=== PATIENT | female | born 1970 | race Caucasian/White ===

== ENCOUNTER 2018-04-10 19:06 | Inpatient (IN) | payer MEDICARE, MEDICAID, SELFPAY ==
[2018-04-10 19:12] VITALS: BP 141/90; PULSE 96; RESP 18; TEMP 37.6; O2SAT 100
--- NOTE | 2018-04-10 19:53 | ED_ITS ---
HPI - Skin/Abscess/Foreign Bdy <Blossom Thomas PA-C - Last Filed: 04/10/18 22:08> General Chief complaint: Skin/Abscess/Foreign Body Stated complaint: SWOLLEN LEFT HAND Time Seen by Provider: 04/10/18 19:52 Source: patient and family Mode of arrival: ambulatory Limitations: no limitations History of Present Illness HPI narrative: This 48-year-old female right-handed female comes in due to worsening swelling in her left hand. She states that she was scratched in the hand by her pet rabbit 5 days ago. The rabbit is not ill and is kept at her home. She states that this has become more painful today and also has been swollen over the last few days. She states that she can't move her fingers normally due to the pain and swelling. She states that the pain is worse today , and swelling seems to be worsening as well. Pain is also more localized in the hand today, previously it seem to be radiating up into forearm almost to the elbow. She states she has been applying Epsom salt and ice packs and using ibuprofen. She has not had fever. She denies any other wounds or injury. She denies any ongoing medical problems such as cardiac issues or DM, no routine medications. Last oral intake was dinner at 5:30 a.m. A close friend who helps in caregiving reveals privately that patient does have a history of developmental delay Related Data Allergies Allergy/AdvReac Type Severity Reaction Status Date / Time INGREDIENT: NKDA - NO KNOWN Allergy Unknown Uncoded 12/04/17 12:19 DRUG ALLERGIES Review of Systems <Blossom Thomas PA-C - Last Filed: 04/10/18 22:08> Review of Systems All systems reviewed & are unremarkable except as noted in HPI and below Exam <Blossom Thomas PA-C - Last Filed: 04/10/18 22:08> Narrative Exam Narrative: GENERAL APPEARANCE: Patient sitting comfortably, in no distress. LUNGS: Clear to auscultation bilaterally. HEART: Rate and rhythm regular without murmur, normal S1 and S2, no S3 or S4. DERMATOLOGIC: There is erythema on the left hand distal dorsum extending to the 2nd, 3rd, and 4th PIP joints, similar pattern on the palmar surface. On the palmar surface of the ring finger there are skin cracks at the metacarpal joint border, no other breaks visible, no clear puncture wound. Exquisitely tender throughout. MS: She has full AROM L. wrist. She is unable to flex the L. ring finger, has some flexion of the other fingers but limited due to effusion. NEUROVASCULAR: L. radial and ulnar pulses are intact, finger tips are warm and pink, sensation is grossly intact Initial Vital Signs Initial Vital Signs: Vital Signs Temperature 99.7 F H 04/10/18 19:12 Pulse Rate 96 H 04/10/18 19:12 Respiratory Rate 18 04/10/18 19:12 Blood Pressure 141/90 H 04/10/18 19:12 Pulse Oximetry 100 04/10/18 19:12 <Garrison Mohr DO - Last Filed: 04/10/18 23:09> Initial Vital Signs Initial Vital Signs: Vital Signs Temperature 99.7 F H 04/10/18 19:12 Pulse Rate 96 H 04/10/18 19:12 Respiratory Rate 18 04/10/18 19:12 Blood Pressure 141/90 H 04/10/18 19:12 Pulse Oximetry 100 04/10/18 19:12 Course <Blossom Thomas PA-C - Last Filed: 04/10/18 22:08> Additional Information: Drs. Mohr and Linwood have evaluated patient and both agree that admission/ortho consultation is needed due to concern for abscess or evolving flexor tendon synovitis. Dr. Linder international editorial producer for orthopedics is contacted and she will evaluate. X-ray ordered, reviewed pending lab work. Patient was transferred to floor while awaiting orthopedics consultation as Dr. Linder advised she would not be able to take patient to OR until late tonight or early a.m. due to her eating dinner prior to arrival in the ED. Orders Ordered: ED Orders 04/10/18 19:50 Basic Metabolic Panel Stat C-Reactive Protein Quant Stat Complete Blood Count AUTO DIFF Stat ESR [Erythrocyte Sedimentation Rate] Stat Lactate (Lactic Acid) Stat Procalcitonin Stat 04/10/18 20:33 XR hand LT min 3V Stat 04/10/18 20:36 Blood Culture Stat Discontinued Medications Sodium Chloride (Normal Saline 0.9%) 1,000 mls @ 1,000 mls/hr IV BOLUS ONE Stop: 04/10/18 21:10 Last Infusion: 04/10/18 21:32 Dose: 1,000 mls/hr Admin: 04/10/18 20:29 Dose: 1,000 mls/hr Ampicillin Sodium/Sulbactam (Sodium 3 gm/ Sodium Chloride) 100 mls @ 100 mls/ hr IV NOW ONE Stop: 04/10/18 20:12 Last Infusion: 04/10/18 21:31 Dose: 0 mls/hr Admin: 04/10/18 20:30 Dose: 100 mls/hr Ketorolac Tromethamine (Toradol) 30 mg IV NOW ONE Stop: 04/10/18 20:12 Last Admin: 04/10/18 20:29 Dose: 30 mg Vital Signs - 8 hr 04/10/18 19:12 04/10/18 21:04 04/10/18 21:40 Temperature 99.7 F H 99.4 F Pulse Rate 96 H 89 87 Respiratory Rate 18 17 16 Blood Pressure 141/90 H 137/77 H Blood Pressure [Right Arm] 135/69 H Pulse Oximetry 100 99 <Garrison Mohr DO - Last Filed: 04/10/18 23:09> Orders Ordered: ED Orders 04/10/18 19:50 Basic Metabolic Panel Stat C-Reactive Protein Quant Stat Complete Blood Count AUTO DIFF Stat ESR [Erythrocyte Sedimentation Rate] Stat Lactate (Lactic Acid) Stat Procalcitonin Stat 04/10/18 20:33 XR hand LT min 3V Stat 04/10/18 20:36 Blood Culture Stat Discontinued Medications Sodium Chloride (Normal Saline 0.9%) 1,000 mls @ 1,000 mls/hr IV BOLUS ONE Stop: 04/10/18 21:10 Last Infusion: 04/10/18 21:32 Dose: 1,000 mls/hr Admin: 04/10/18 20:29 Dose: 1,000 mls/hr Ampicillin Sodium/Sulbactam (Sodium 3 gm/ Sodium Chloride) 100 mls @ 100 mls/ hr IV NOW ONE Stop: 04/10/18 20:12 Last Infusion: 04/10/18 21:31 Dose: 0 mls/hr Admin: 04/10/18 20:30 Dose: 100 mls/hr Ketorolac Tromethamine (Toradol) 30 mg IV NOW ONE Stop: 04/10/18 20:12 Last Admin: 04/10/18 20:29 Dose: 30 mg Vital Signs - 8 hr 04/10/18 19:12 08/16/18 21:04 04/10/18 21:40 Temperature 99.7 F H 99.4 F Pulse Rate 96 H 89 87 Respiratory Rate 18 17 16 Blood Pressure 141/90 H 137/77 H Blood Pressure [Right Arm] 135/69 H Pulse Oximetry 100 99 MDM - Skin/Abscess/Foreign Bdy <Blossom Thomas PA-C - Last Filed: 04/10/18 22:08> Lab Data Attestation: I reviewed the patient's lab results. Result diagrams: 04/10/18 19:50 04/10/18 19:50 Lab Results 04/10/18 04/10/18 04/10/18 Range/Units 19:50 19:50 19:50 WBC 9.0 (4.5-11.0) X10^3/uL RBC 4.20 (4.0-5.2) X10^6/uL Hgb 11.9 L (12.0-16.0) g/dL Hct 34.6 L (36-46) % MCV 82.3 (80-100) fL MCH 28.3 (26-34) PG MCHC 34.3 (30-36) % RDW 19.3 H (11.6-14.8) % Plt Count 174 (150-400) X10^3/uL Neut % (Auto) 88.6 H (50-75) % Lymph % (Auto) 6.6 L (25-40) % [place] % (Auto) 4.0 (3-14) % Eos % (Auto) 0.5 L (2-4) % Baso % (Auto) 0.3 (0-2) % Neut # (Auto) 7900 H (6694-3973) /uL Sodium 144 (137-145) mmol/L Potassium 3.4 (3.4-5.1) mmol/L Chloride 103 (98-107) mmol/L Carbon Dioxide 29 (22-32) mmol/L BUN 15 (7-17) mg/dL Creatinine 0.90 (0.52-1.04) mg/dL Estimated GFR > 60.0 (>60) mL/min BUN/Creatinine Ratio 16.7 (6-22) Glucose 136 H (70-100) mg/dL Lactate (0.7-2.1) mmol/L Calcium 9.3 (8.4-10.2) mg/dL Procalcitonin < 0.05 (<0.5) ng/mL 04/10/18 Range/Units 19:50 WBC (4.5-11.0) X10^3/uL RBC (4.0-5.2) X10^6/uL Hgb (12.0-16.0) g/dL Hct (36-46) % MCV (80-100) fL MCH (26-34) PG MCHC (30-36) % RDW (11.6-14.8) % Plt Count (150-400) X10^3/uL Neut % (Auto) (50-75) % Lymph % (Auto) (25-40) % [place] % (Auto) (3-14) % Eos % (Auto) (2-4) % Baso % (Auto) (0-2) % Neut # (Auto) (0102-2752) /uL Sodium (137-145) mmol/L Potassium (3.4-5.1) mmol/L Chloride (98-107) mmol/L Carbon Dioxide (22-32) mmol/L BUN (7-17) mg/dL Creatinine (0.52-1.04) mg/dL Estimated GFR (>60) mL/min BUN/Creatinine Ratio (6-22) Glucose (70-100) mg/dL Lactate 1.3 (0.7-2.1) mmol/L Calcium (8.4-10.2) mg/dL Procalcitonin (<0.5) ng/mL Imaging Data hand: Radiologist's impression: View Report History [address] [address] XRay Report Signed Patient: Brandy Heart MR#: [id number] : 1970 Acct:[id number] Age/Sex: 48 / F Date of Service: 04/10/18 Loc: ED Accession Number: [id number] Procedure: XR hand LT min 3V Ordering Provider: Blossom Thomas P.A-C PROCEDURE: XR HAND LT MIN 3V INDICATIONS: pain, cellulitis TECHNIQUE: 3 views of the hand(s) acquired. COMPARISON: None. FINDINGS: Bones: No fractures or dislocations. Carpal bones are normally aligned. No suspicious bony lesions. Soft tissues: There is marked soft tissue swelling over the dorsum of the hand. IMPRESSION: Marked soft tissue swelling. No underlying bony abnormality to suggest osteomyelitis. However, plain film is less sensitive in the acute phases of osteomyelitis. If there is high clinical suspicion for acute osteomyelitis, MRI with and without contrast is recommended. <Garrison Mohr, DO - Last Filed: 04/10/18 23:09> Lab Data Lab Results 04/10/18 04/10/18 04/10/18 Range/Units 19:50 19:50 19:50 WBC 9.0 (4.5-11.0) X10^3/uL RBC 4.20 (4.0-5.2) X10^6/uL Hgb 11.9 L (12.0-16.0) g/dL Hct 34.6 L (36-46) % MCV 82.3 (80-100) fL MCH 28.3 (26-34) PG MCHC 34.3 (30-36) % RDW 19.3 H (11.6-14.8) % Plt Count 174 (150-400) X10^3/uL Neut % (Auto) 88.6 H (50-75) % Lymph % (Auto) 6.6 L (25-40) % [place] % (Auto) 4.0 (3-14) % Eos % (Auto) 0.5 L (2-4) % Baso % (Auto) 0.3 (0-2) % Neut # (Auto) 7900 H (7545-5535) /uL Sodium 144 (137-145) mmol/L Potassium 3.4 (3.4-5.1) mmol/L Chloride 103 (98-107) mmol/L Carbon Dioxide 29 (22-32) mmol/L BUN 15 (7-17) mg/dL Creatinine 0.90 (0.52-1.04) mg/dL Estimated GFR > 60.0 (>60) mL/min BUN/Creatinine Ratio 16.7 (6-22) Glucose 136 H (70-100) mg/dL Lactate (0.7-2.1) mmol/L Calcium 9.3 (8.4-10.2) mg/dL Procalcitonin < 0.05 (<0.5) ng/mL 04/10/18 Range/Units 19:50 WBC (4.5-11.0) X10^3/uL RBC (4.0-5.2) X10^6/uL Hgb (12.0-16.0) g/dL Hct (36-46) % MCV (80-100) fL MCH (26-34) PG MCHC (30-36) % RDW (11.6-14.8) % Plt Count (150-400) X10^3/uL Neut % (Auto) (50-75) % Lymph % (Auto) (25-40) % [place] % (Auto) (3-14) % Eos % (Auto) (2-4) % Baso % (Auto) (0-2) % Neut # (Auto) (5963-3947) /uL Sodium (137-145) mmol/L Potassium (3.4-5.1) mmol/L Chloride (98-107) mmol/L Carbon Dioxide (22-32) mmol/L BUN (7-17) mg/dL Creatinine (0.52-1.04) mg/dL Estimated GFR (>60) mL/min BUN/Creatinine Ratio (6-22) Glucose (70-100) mg/dL Lactate 1.3 (0.7-2.1) mmol/L Calcium (8.4-10.2) mg/dL Procalcitonin (<0.5) ng/mL Discharge Plan Departure Patient Disposition: Admitted As Inpatient Clinical Impression: Other synovitis and tenosynovitis, left hand, Cellulitis and abscess of hand Discharge Date/Time: 04/10/18 21:49 Interventions: ED Discharge Assessment Last Done: 04/10/18 21:47 Admit Date/Time: 04/10/18 21:21 Admit Provider: Ashlee Linder <Garrison Mohr DO - Last Filed: 04/10/18 23:09> Cosign ED Attending Mk Attestation: I was available for consultation during this patient's emergency department encounter
[2018-04-10 20:13] LABS: Add Manual Diff / Slide Review NO; Basophils Percent Auto 0.3 % (0-2); Eosinophils Percent Auto 0.5 % (2-4); Hematocrit 34.6 % (36-46); Hemoglobin 11.9 g/dL (12.0-16.0); Lymphocytes Percent Auto 6.6 % (25-40); Mean Corpuscular HGB Conc 34.3 % (30-36); Mean Corpuscular Hemoglobin 28.3 PG (26-34); Mean Corpuscular Volume 82.3 fL (80-100); Neutrophils Absolute Auto 7900 /uL (3000-5900); Neutrophils Percent Auto 88.6 % (50-75); Platelet Count 174 X10^3/uL (150-400); Red Cell Distribution Width 19.3 % (11.6-14.8)
[2018-04-10 20:22] LABS: Lactate (Lactic Acid) 1.3 mmol/L (0.7-2.1)
[2018-04-10 20:23] LABS: BUN Creatinine Ratio 16.7 (6-22); Blood Urea Nitrogen 15 mg/dL (7-17); Calcium 9.3 mg/dL (8.4-10.2); Carbon Dioxide 29 mmol/L (22-32); Chloride 103 mmol/L (98-107); Estimated Glomerular Filt Rate > 60.0 mL/min (>60); Glucose 136 mg/dL (70-100); HEMOLYSIS < 15 (0-50); Potassium 3.4 mmol/L (3.4-5.1); Sodium 144 mmol/L (137-145)
[2018-04-10] MEDS: SODIUM CHLORIDE 0.9% 1,000 ML 1000 ML IV (20:29)
[2018-04-10] MEDS: KETOROLAC 60 MG/2 ML VIAL 30 MG IV (20:29)
[2018-04-10] MEDS: AMPICILLIN/SULBACTAM 3 GM 3 GM in SODIUM CHLORIDE 0.9% 100 ML IV (20:30)
--- NOTE | 2018-04-10 20:33 | DI.RAD.S_ITS ---
PROCEDURE: XR HAND LT MIN 3V INDICATIONS: pain, cellulitis TECHNIQUE: 3 views of the hand(s) acquired. COMPARISON: None. FINDINGS: Bones: No fractures or dislocations. Carpal bones are normally aligned. No suspicious bony lesions. Soft tissues: There is marked soft tissue swelling over the dorsum of the hand. IMPRESSION: Marked soft tissue swelling. No underlying bony abnormality to suggest osteomyelitis. However, plain film is less sensitive in the acute phases of osteomyelitis. If there is high clinical suspicion for acute osteomyelitis, MRI with and without contrast is recommended. Dictated by: Nicol Segura M.D. on 04/10/2018 at 21:19 Approved by: Nicol Segura M.D. on 04/10/2018 at 21:20
[2018-04-10 20:55] LABS: Procalcitonin < 0.05 ng/mL (<0.5)
[2018-04-10 21:04] VITALS: BP 135/69; PULSE 89; RESP 17; O2SAT 99
[2018-04-10 21:40] VITALS: BP 137/77; PULSE 87; RESP 16; TEMP 37.4
[2018-04-10 21:49] VITALS: BMI 24.0
--- NOTE | 2018-04-10 21:54 | PC.NURSE ---
Savi shift note: Received patient from ED to acute care in stable condition, alert, oriented, and cooperative. Ambulated independently to bed, caregiver at bedside. Caregiver states Brandy had developmental delays and receives 4 hours per day of home care. She dressed herself and is able to voice her needs. Left hand edematous to 2nd,3rd and 4th finger and distal palm both anterior and posterior. 2+ radial pulse, very tender to touch, warm, areas of discoloration to proximal 2nd and 3rd finger. Decrease ROM, however patient able to move finger tips. NPO since 1729. Dr. Linder at bedside. Call light within reach
--- NOTE | 2018-04-10 22:52 | PM.HP.1 ---
History of Present Illness Date Patient Seen: 04/10/18 Time Patient Seen: 22:52 Chief complaint: SWOLLEN LEFT HAND Narrative: Patient is a 48-year-old female with a history of developmental delay that presents with 3-4 days of left hand, ring finger swelling and pain. Patient states she was scratched by her pet rabbit 4-5 days ago. She states initially the hand and finger looks fine and then over the last few days it has become more swollen and became acutely more painful today. She complains of limited range of motion extreme swelling pain and tenderness. She denies any history of fevers chills nausea vomiting or rigors. States the pet rabbit has a clean bill of health. The patient denies any history of diabetes heart problems or medication allergies. Her friend and caregiver present with her today. Of note the patient does make her own medical decisions although looks to guide it is from her friend. There is no formal POA as the patient signs for herself. Patient received antibiotics in the ER. And blood cultures were drawn. Patient had fusiform swelling a flexed posture tenderness to palpation pain on passive stretch concerning for flexor tenosynovitis along with the scratch mercedes on the volar aspect of the proximal phalanx. Imaging in the ER showed diffuse soft tissue swelling without any evidence of fracture or foreign bodies. Patient's last meal was at 5:30 p.m. which was a full dinner. She was indicated for operative debridement of her flexor tenosynovitis which will be timed once her NPO status and is appropriate for general anesthesia. Patient History Medical History Cognitive developmental delay (Chronic) Seizure disorder (Resolved) Family & Social History Family History: Reviewed 04/10/18 by Ashlee Linder MD Social History: household members family,caregiver Prior Living Arrangements House Safety & Behavioral: Feels Safe in Current Yes Environment Been Physically Hurt or No Threatened By a Person Suicidal Ideation Description None Suicide Plan Description No Plan Tobacco & Substance use: Smoking Status Never smoker alcohol intake frequency 0-2 drinks per day Substance Use Type does not use Meds Allergies Allergy/AdvReac Type Severity Reaction Status Date / Time INGREDIENT: NKDA - NO KNOWN Allergy Unknown Uncoded 12/04/17 12:19 DRUG ALLERGIES Review of Systems Review of Systems All systems reviewed & are unremarkable except as noted in HPI and below Exam Vital Signs (past 8 hours): - 04/10/18 19:12 04/10/18 21:04 04/10/18 21:40 Temperature 99.7 F H 99.4 F Pulse Rate 96 H 89 87 Respiratory Rate 18 17 16 Blood Pressure 141/90 H 137/77 H Blood Pressure [Right Arm] 135/69 H Pulse Oximetry 100 99 Oxygen Delivery Method Room Air Narrative Exam Narrative: The patient is an alert female oriented to place time and self. She is sitting comfortably in bed in no acute distress. HEENT exam normocephalic atraumatic respiratory exam: lungs clear to auscultation bilaterally, breathing unlabored on room air, converses easily cardiovascular exam: regular rate and rhythm abdominal: soft nontender musculoskeletal examination: right upper extremity no swelling erythema or signs or symptoms of infection full range of motion of the wrist elbow and shoulder. bilateral lower extremities full range of motion atraumatic, nontender, no erythema or concerns for infection. Neurovascular intact left hand: diffuse form swelling of the left ring finger proximal phalanx with swelling to a lesser extent extending along the middle and distal phalanxes and up over the MCP joint both orally and dorsally. There is exquisite tenderness to palpation along the flexor tendon sheath both proximally and distally. The patient's finger is held in a mildly flexed position and there is pain on passive stretch. Patient has a scabbed over scratch on the volar aspect of the proximal phalanx where the majority of the swelling is located patient endorses decreased sensation to the ring finger but this is somewhat difficult to ascertain as she also endorses some decreased sensation on other unaffected digits. all digits have brisk capillary refill. 2+ palpable radial pulse. Full range of motion of the elbow. Full range of motion of the wrist in flexion extension with excellent strength. Objective Imaging X-ray left hand: My impression: three views left hand AP oblique lateral demonstrate no fractures or dislocations no obvious foreign bodies. Significant soft tissue swelling along the left ring finger most pronounced at the proximal phalanx Radiologist's impression: Marked soft tissue swelling. No underlying bony abnormality to suggest osteomyelitis. However, plain film is less sensitive in the acute phases of osteomyelitis. If there is high clinical suspicion for acute osteomyelitis, MRI with and without contrast is recommended. Labs Result Diagrams: 04/10/18 19:50 04/10/18 19:50 Labs: Laboratory Results - last 24 hr 04/10/18 04/10/18 04/10/18 19:50 19:50 19:50 WBC 9.0 RBC 4.20 Hgb 11.9 L Hct 34.6 L MCV 82.3 MCH 28.3 MCHC 34.3 RDW 19.3 H Plt Count 174 Neut % (Auto) 88.6 H Lymph % (Auto) 6.6 L [place] % (Auto) 4.0 Eos % (Auto) 0.5 L Baso % (Auto) 0.3 Neut # (Auto) 7900 H Sodium 144 Potassium 3.4 Chloride 103 Carbon Dioxide 29 BUN 15 Creatinine 0.90 Estimated GFR > 60.0 BUN/Creatinine Ratio 16.7 Glucose 136 H Lactate Calcium 9.3 Procalcitonin < 0.05 04/10/18 19:50 WBC RBC Hgb Hct MCV MCH MCHC RDW Plt Count Neut % (Auto) Lymph % (Auto) [place] % (Auto) Eos % (Auto) Baso % (Auto) Neut # (Auto) Sodium Potassium Chloride Carbon Dioxide BUN Creatinine Estimated GFR BUN/Creatinine Ratio Glucose Lactate 1.3 Calcium Procalcitonin Assessment & Plan (1) Flexor tenosynovitis of finger: Problem details: the patient has a history and examination concerning for acute flexor tenosynovitis of the left ring finger. The patient has positive [place] signs including fusiform swelling, pain on passive stretch, flexed positioning and tenderness along the flexor tendon sheath. She also has a history of a animal scratch in the location volarly along the proximal phalanx. She has been indicated for surgical debridement, To treat the infection and prevent or limit damage to the flexor tendons and tendon sheath. the risks benefits and alternatives to the procedure were explained to the patient and her caregiver /friend these included but were not limited to persistent infection, need for additional procedures, stiffness, damage to nerves, damage to vessels, damage to tendons, Wound healing problems, DVT PE cardiopulmonary complications associated with general anesthesia, up to and including . the patient expressed informed consent to proceed with the scheduled procedure and consent was signed and witnessed. Once the patient is appropriately NPO she will be taken to the OR tonight for debridement she will then be continued on IV antibiotics broad-spectrum and then tailored as an organism is identified. She will have her 1st dressing change approximately 12 hr after surgery, then will undergo soaks and dressing changes 3 times daily. Current visit: Yes Status: Acute Plan: Assessment/Plan Narrative: She has been indicated for surgical debridement, To treat the infection and prevent or limit damage to the flexor tendons and tendon sheath. the risks benefits and alternatives to the procedure were explained to the patient and her caregiver /friend these included but were not limited to persistent infection, need for additional procedures, stiffness, damage to nerves, damage to vessels, damage to tendons, Wound healing problems, DVT PE cardiopulmonary complications associated with general anesthesia, up to and including . the patient expressed informed consent to proceed with the scheduled procedure and consent was signed and witnessed. Once the patient is appropriately NPO she will be taken to the OR tonight for debridement she will then be continued on IV antibiotics broad-spectrum and then tailored as an organism is identified. She will have her 1st dressing change approximately 12 hr after surgery, then will undergo soaks and dressing changes 3 times daily. Time Spent With Patient Time with patient: 25 - 35 minutes Quality VTE Deep Vein Thrombosis/Pulmonary Embolism Present on Admission: No
--- NOTE | 2018-04-10 23:09 | PM.PREOP ---
Pre-operative Note Interval Note Pre-op Check: Yes History & Physical Reviewed by Physician and Yes Exam Performed Changes: No H&P completed within 30 days and has changed as indicated here:: H&P today
[2018-04-10 23:20] LABS: Erythrocyte Sedimentation Rate 34 MM/HR (0-20)
[2018-04-10 23:36] LABS: C-Reactive Protein Quant 7.4 mg/dL (<1.0)
[2018-04-10] MEDS: SODIUM CHLORIDE 0.9% 1,000 ML, GENTAMICIN 80 MG IRR (23:59)
[2018-04-11] VITALS (16 sets, daily range): BP systolic 104–127; BP diastolic 47–75; PULSE 74–94; RESP 10–19; TEMP 36.7–37.4; O2SAT 90–99
--- NOTE | 2018-04-11 00:47 | SUR.PHASEI ---
Report called to [facility]
--- NOTE | 2018-04-11 00:49 | PM.OP.1 ---
Operative Date/Time/Diagnoses Date of procedure: 04/10/18 Time of procedure: 23:49 Pre-op diagnosis: pyogenic tenosynovitis left hand, ring finger ICD 10 m 65.842 cellulitis left hand L [address]3119 flexor tenosynovitis, finger M65.9 Post-op diagnosis: same Procedure & Clinicians Procedure: 1. Irrigation debridement flexor tenosynovitis left hand, ring finger, drainage of tendon sheath, 1 digit, CPT [id number] Same procedure as scheduled: Yes Indications: patient is a 48-year-old female that presents with several days of increased swelling redness and pain to her left ring finger. The patient had a scratch by her pet rabbit several days ago and has had progressive swelling which became acutely more painful today. She has had decreased range of motion of the digit, swelling and redness concerning for infection. She was evaluated in the emergency department found to have clinical examination history concerning for flexor tenosynovitis including fusiform swelling of the digit pain on passive stretch pain along the tendon sheath and pain on passive stretch. Patient had elevated infectious markers including ESR and CRP. She was indicated for operative drainage of the flexor tendon sheath and indicated for admission for IV antibiotics. Risks benefits and alternatives to the procedure were explained to the patient in detail including but not limited to persistent infection, need for additional procedures, stiffness, damage to nerves vessels and tendons, blood clot, pulmonary embolism, cardiopulmonary complications from general anesthesia up to and including . Patient elected to proceed with the procedure and informed consent was signed and witnessed. Surgeon: Ashlee Linder Click Yes if Unassisted: Yes Anesthesia Type: General Operative Notes Findings: upon proximal excision near the palmar crease dissection was taken through the subcutaneous tissue and apurulent subcutaneous abscess was encountered additionally with opening the flexor tendon sheath additional copious purulence was expressed. Closure Type: primary Specimen(s): other ( cultures for microbiology) Implants & Drains: quarter-inch Clinton drain Estimated Blood Loss (mL): 5 Blood products transfused: none Tourniquet time (min): 34 Procedure in detail: patient was seen in the preoperative area the site and side of surgery were marked and informed consent confirmed. Final questions were answered. The patient was brought back to the operating room and placed supine on the operative table. General anesthesia was administered. The left arm was Placed on a hand table. A nonsterile brachial tourniquet was placed. left arm was prepped and draped in the standard sterile fashion. A formal time-out was performed confirming the patient, side, site of surgery and presence of informed consent. The patient had received Unasyn and vancomycin just previously in the emergency room. all were in agreement the arm was elevated for gravity exsanguination. Tourniquet was then elevated to 250 mm of mercury and stayed there for 34 min. Attention was turned to the left ring finger. There was fusiform most remarkably along the proximal phalanx. there was a healed scratch mercedes on the volar aspect of the proximal phalanx. a Nimisha style incision was marked along the finger however only the proximal aspect over the A1 yue was opened and the very distal part of the incision at the distal phalanx was opened for the counter incision. Attention was 1st turned proximally. The proximal Saida incision was taken through the subcutaneous tissue and fascia down to the level of the A1 yue in the palm. Upon superficial dissection a subcutaneous abscess was encountered including gross purulence. This was cultured and evacuated. Next the A1 yue was exposed and incised longitudinally this yielded a flush of additional purulence from within the tendon sheath. An additional culture was taken from this fluid. A 14 gauge angiocatheter was placed into the tendon sheath. attention was then turned distally where the distal aspect of the incision was opened and taken down to the level of the flexor tendons the tendon sheath was entered and held open with a small Felicitas drain and the edge of the forcep. A 30 cc syringe was used to irrigate 500 cc of saline with gentamicin through the flexor tendon sheath from proximal to distal. When this was completed there was completely clear drainage from the distal aspect of the incision. Additional antibiotic saline was used to further flush out irrigate the wounds. Once we were satisfied with this, The tourniquet was released and hemostasis achieved. the digit pinked up very well. a quarter-inch Felicitas drains was placed in the proximal incision and the wounds were loosely closed with just a few nylon sutures. dressings with gauze and Kerlix were placed. Patient was awoken from anesthesia and taken to recovery room in good condition. There no immediate complications from this procedure. All counts were correct. Complications: none Condition: stable Disposition: PACU Plan for aftercare: The patient will be admitted to the floor she will remain on scheduled broad-spectrum IV antibiotics with vancomycin and Zosyn until her microbiology returns. She will remain on IV antibiotics while in the hospital, once her cultures are finalized, And her incisions healing well, she will be discharged on appropriate oral antibiotics for 14 days. on postop day 1 approximately 12 hr after surgery the patient will have her 1st dressing change the Felicitas drain will be removed and she will start t.i.d. soaks with a dilute Betadine solution of a ratio 1-10 ( 10 cc of Betadine/ per 100 cc of saline) and dry dressings will be replaced. On postop day 2 the patient will start formal physical therapy for hand and finger range of motion. If she has any evidence of continued infection or purulent drainage she may need to be returned to the operating room for additional debridement. She will be ambulatory on the Floor. follow up with Dr. Linder in 10-14 days
--- NOTE | 2018-04-11 01:05 | SUR.PHASEI ---
Report to [facility]. VS stable. Pt awake, reported pain to her left hand during transport to her room, but that her hand felt better than before the surgery. Lela quevedo.
[2018-04-11] MEDS: LACTATED RINGERS 1,000 ML 42 ML IV (01:25)
[2018-04-11] MEDS: VANCOMYCIN 1,000 MG/200 ML FROZ.PIGGY 200 MG IV ×2 (01:33→13:46)
[2018-04-11] MEDS: PIPERACILLIN-TAZO 3.375 GM/50 ML FROZ.PIGGY IV ×4 (02:44→20:19)
--- NOTE | 2018-04-11 07:44 | P.PN_ITS ---
Subjective Date Patient Seen: 04/11/18 Time Patient Seen: 07:39 Interval history: Patient is PD 1. S/P I and D flexor tenosynovitis ring finger left hand and drainage of tendon sheath by Dr. Linder. No complaints of any pain or discomfort. Does complain about numbness in her left ring finger. Waiting results of Gram stain and cultures. Currently on IV Zosyn and vancomycin. Exam Vital Signs (past 8 hours): - 04/11/18 00:25 04/11/18 00:30 04/11/18 00:35 Temperature 98.5 F Pulse Rate 93 H 94 H 93 H Respiratory Rate 19 19 15 Blood Pressure 118/72 119/75 127/67 H Pulse Oximetry 90 L 96 95 04/11/18 00:42 04/11/18 00:46 04/11/18 00:55 Temperature 99.4 F 99.0 F Pulse Rate 84 89 90 Respiratory Rate 14 12 18 Blood Pressure 115/63 114/69 112/68 Pulse Oximetry 96 96 96 04/11/18 01:25 04/11/18 01:55 04/11/18 02:55 Temperature 98.9 F 99.2 F 98.4 F Pulse Rate 86 86 86 Respiratory Rate 18 17 17 Blood Pressure 120/66 113/65 104/60 Pulse Oximetry 95 96 96 04/11/18 04:06 Temperature 99.0 F Pulse Rate 85 Respiratory Rate 17 Blood Pressure 110/57 L Pulse Oximetry 97 Oxygen Delivery Method Room Air Narrative Exam Narrative: Patient in bed. Appears comfortable. Afebrile. Left hand with bulky dressing on. Dressings clean dry and intact. Moderate swelling and fingers. Good movement in all fingers except for ring finger. Full sensation in all fingers except for numbness in the ring finger. Good capillary refill in all fingers. Patient alert orient x3. Objective Labs Result Diagrams: 04/10/18 19:50 04/10/18 19:50 Labs: Laboratory Results - last 24 hr 04/10/18 04/10/18 04/10/18 19:50 19:50 19:50 WBC 9.0 RBC 4.20 Hgb 11.9 L Hct 34.6 L MCV 82.3 MCH 28.3 MCHC 34.3 RDW 19.3 H Plt Count 174 Neut % (Auto) 88.6 H Lymph % (Auto) 6.6 L Bradford % (Auto) 4.0 Eos % (Auto) 0.5 L Baso % (Auto) 0.3 Neut # (Auto) 7900 H ESR Sodium 144 Potassium 3.4 Chloride 103 Carbon Dioxide 29 BUN 15 Creatinine 0.90 Estimated GFR > 60.0 BUN/Creatinine Ratio 16.7 Glucose 136 H Lactate Calcium 9.3 C-Reactive Protein Procalcitonin < 0.05 04/10/18 04/10/18 04/10/18 19:50 19:50 19:50 WBC RBC Hgb Hct MCV MCH MCHC RDW Plt Count Neut % (Auto) Lymph % (Auto) Bradford % (Auto) Eos % (Auto) Baso % (Auto) Neut # (Auto) ESR 34 H Sodium Potassium Chloride Carbon Dioxide BUN Creatinine Estimated GFR BUN/Creatinine Ratio Glucose Lactate 1.3 Calcium C-Reactive Protein 7.4 H Procalcitonin Assessment & Plan Post-op Postoperative Procedures Operation Date: 04/10/18 23:15 Actual Procedures Side Surgeon p Incision and Drainage Wound/Extremity Left Ashlee Linder MD PD 1. Plan is to continue Zosyn and Vancomycin until her microbiology returns. She will remain on IV antibiotics while in the hospital, once her cultures are finalized, And her incisions healing well, she will be discharged on appropriate oral antibiotics for 14 days. On postop day 1 approximately 12 hr after surgery, the patient will have her 1st dressing change the Felicitas drain will be removed and she will start t.i.d. soaks with a dilute Betadine solution of a ratio 1-10 ( 10 cc of Betadine/ per 100 cc of saline) and dry dressings will be replaced. On postop day 2 the patient will start formal physical therapy for hand and finger range of motion. She will be ambulatory on the Floor. follow up with Dr. Linder in 10-14 days Time Spent With Patient less than 15 minutes Quality VTE Deep Vein Thrombosis/Pulmonary Embolism Present on Admission: No
[2018-04-11] MEDS: HYDROCODONE/ACET 5/325 TABLET 1 TAB PO ×3 (08:11→20:18)
[2018-04-11 10:24] LABS: Erythrocyte Sedimentation Rate 44 MM/HR (0-20)
--- NOTE | 2018-04-11 10:27 | CM.DANOTE ---
Discharge Planning/Care Management DCP: assessment: case received and met this morning at 0800 with pt and her cousin Isadora. Introduced self and role. Pt is found lying in bed, smiles and is alert. Does defer to Isadora to give specific information. Pt is a 48 year old female who admitted to care of Dr. Miller. She was taken to surgery for I&D L hand after being scratched by her pet rabbit. Payer: Medicare and Medicaid. PCP: Dr. Baker Pt is expected to be able to transition from IV antibiotics to orals by time she goes home. PT is seeing her. OT is requested in Care Team meeting this morning/order is now obtained. P: follow prn for d/c issues and options as the POC unfolds Discharge Assessment Start: 04/11/18 10:21 Freq: Status: Active Protocol: Document 04/11/18 10:21 ITV (Rec: 04/11/18 10:27 ITV [id number]) Discharge Planning Assessment Advance Directives? No Advance Directives on File No History Provided By Patient Family Member Prior Living Arrangements House Household Members family caregiver Comment pt lives with her aunt Bekah Cervantes and cousin Isadora. Bekah is her [facility] caregiver . [facility] will contact the [facility] and fax initial clinical as per proto. Pt lives in [place] Type of transporation used prior to Relies on Others admit Independent with ADL's No: needs structure and supportive care Is patient alert and oriented? cognitive status unclear. pt is alert, does answer simple questions. defers Needs Assistance With Managing Medications Comment general supportive care Caregiver for Another No Comment CMAA in process of contacting the CC base manager Barriers to Discharge No Transportation Arrangement family Whiteboard Updated in Patient Room with Yes name and ext. # of Naturalist Review Status In Process Next Review Type Continued Stay Review
--- NOTE | 2018-04-11 10:43 | PT.IIE ---
Current Diagnoses Synovitis and tenosynovitis, unspecified (04/10/18) Surgery Performed Operation Date: 04/10/18 23:15 Actual Procedures p Incision and Drainage Wound/Extremity(Left) - Ashlee Linder MD Medical History (Last Reviewed 04/10/18 @ 22:55 by Ashlee Linder MD) Cognitive developmental delay (Chronic) Seizure disorder (Resolved) Physical Therapy Inpatient Evaluation/Re-Eval M1 PT/OT-IP Prior Functional Status Start: 04/11/18 11:37 Freq: NEEDED Status: Active Protocol: Document 04/11/18 11:37 MDD (Rec: 04/11/18 11:46 MDD [id number]) Medical Review Prior Functional Status Medical History Reviewed Yes Communication normal Mobility and Gait independent without AD Activities of Daily Living and IADL's independent Social History Household Members family caregiver Living Arrangements House Number of Floors (Floors) One Floor Home Environment Standard Height Toilet Tub/Shower Employment Status Unknown Additional Social History Comment Pt is developmentally delayed. Lives with 2 family members, Bekah and Isadora. Bekah is her caregiver. M2 PT-IP Current Condition Start: 04/11/18 11:37 Freq: NEEDED Status: Active Protocol: Document 04/11/18 11:37 MDD (Rec: 04/11/18 11:46 MDD [id number]) Physical Therapy Current Condition Current Condition Evaluation Date 04/11/18 Treatment Diagnosis swollen left hand Onset Date 04/10/18 M3 PT-IP Subjective Start: 04/11/18 11:37 Freq: NEEDED Status: Active Protocol: Document 04/11/18 11:37 MDD (Rec: 04/11/18 11:46 MDD [id number]) Subjective Physical Therapy Visit Type Type Initial Evaluation Visit Start Time 10:32 Visit Stop Time 10:43 Total Visit Minutes 12 Notes Per nursing pt has been ambulating in the room with SBA. Number of STATOR WINDER Visits 0 Therapy Pain Assessment Pain When Pain Assessed At Rest Pain Present Pain Present Pain Reported Location Left Hand Intensity 4 Scale Used Numeric (1 - 10) Description Aching M4 PT-IP Mobility and Gait Start: 04/11/18 11:37 Freq: NEEDED Status: Active Protocol: Document 04/11/18 11:37 MDD (Rec: 04/11/18 11:46 MDD [id number]) PT-Bed Mobility Assessment Rolling Level of Assist Independent Supine to Sit Supine to Sit Independent Sit to Supine Sit to Supine Independent Scooting Scooting to Edge of Bed Independent Scooting Up and Down in Bed Independent PT-Transfer Assessment Sit to and From Stand Sit to and from Stand Independent Equipment Transfer Assistive Device Gait Belt Gait Assessment Gait Gait Assistance Required: Independent Distance (Feet) (feet) 10 Assistive Devices Assistive Device Gait Belt Gait Deviations General Gait Pattern Within Normal Limits PT-Balance Assessment Sitting Balance and Reactions Static Sitting Balance Ability Normal Dynamic Sitting Balance Ability Normal Standing Balance and Reactions Static Standing Balance Ability Normal Dynamic Standing Balance Ability Normal Balance Tests James Balance Test Score 52/56 Query Text:Score M5 PT-IP Objective Assessments Start: 04/11/18 11:37 Freq: NEEDED Status: Active Protocol: Document 04/11/18 11:37 MDD (Rec: 04/11/18 11:46 MDD [id number]) Orientation Orientation/Cognition Level of Alertness Alert Orientation Name Month Place Situation Language Function Ability No Deficits Noted Safety Awareness Understands Safety Issues Memory Description No Deficits Noted Gross Range of Motion Lower Extremity ROM Assessment Within Functional Limits Strength Lower Extremity Strength Assessment Within Functional Limits M7 PT-IP Assessment and Plan Start: 04/11/18 11:37 Freq: NEEDED Status: Active Protocol: Document 04/11/18 11:37 MDD (Rec: 04/11/18 11:46 MDD [id number]) PT Summary Assessment and Plan Potential Rehabilitation Potential Excellent Status of Condition at Evaluation Stable Summary Progress Towards Goals Safe For Discharge Goals Met Assessment Summary Pt does not demonstrate any strength, mobility or balance impairments this day. Would be appropriate for OT consult to begin left hand/wrist ROM exercises tomorrow (to be started post op day 2 per surgeon's note). Pt considered at her prior functional mobility baseline. D/C from skilled inpatient services. Goals Bed Mobility Goal Independent Transfer Goal Independent Gait Goal Independent Days to Meet Goals 1 Frequency of Treatment Frequency Of Treatment Discharge Recommendations To Nursing Amount of Assist Needed Independent Discharge Recommendations PT Discharge Recommendations Home with Assistance
--- NOTE | 2018-04-11 11:06 | CM.DPC ---
Located the patients DDA social service director, Shruthi Walters [phone]. She was out of the office. I faxed clinicals to [phone]
--- NOTE | 2018-04-11 15:19 | PC.NURSE ---
day shift order to take off dressing and remove amrtin drain from pt's ring finger. once dressing removed, hand was edematous, bruised and serosang pus was still coming out of drain. Called MD to clarify if drain to stay in, order to follow original dressing change orders. Drain removed and hand soaked in 1:10 povodone/iodine:saline for about 20 min. hand rinsed with saline and 4x4 gauze applied and wrapped in kerlix. pt tolerated well. pain controlled with 1 norco q4 hrs. hourly rounding provided, call light within reach.
--- NOTE | 2018-04-11 18:43 | PC.NURSE ---
BETADINE/NS SOAK COMPLETED AND NEW DRSG PLACED,2X2 GAUZE/KERLIX WRAPPED. PATIENT DENIES ANY PAIN FOR PROCEDURE.UP INDEP IN ROOM VERY STEADY ON FEET.TOLERATED GEN DIET WITHOUT NAUSEA
[2018-04-11] MEDS: DOCUSATE 100 MG CAPSULE PO (20:19)
[2018-04-12] MEDS: VANCOMYCIN 1,000 MG/200 ML FROZ.PIGGY 200 MG IV ×2 (00:59→13:59)
[2018-04-12] MEDS: PIPERACILLIN-TAZO 3.375 GM/50 ML FROZ.PIGGY IV ×4 (02:20→20:14)
[2018-04-12 03:35] VITALS: BP 101/56; PULSE 67; RESP 17; TEMP 36.7; O2SAT 99
[2018-04-12] MEDS: LACTATED RINGERS 1,000 ML 42 ML IV (06:23)
[2018-04-12 07:10] LABS: Hematocrit 26.3 % (36-46); Mean Corpuscular HGB Conc 34.2 % (30-36); Mean Corpuscular Volume 81.9 fL (80-100); Platelet Count 134 X10^3/uL (150-400); Red Blood Cell Count 3.21 X10^6/uL (4.0-5.2); Red Cell Distribution Width 18.9 % (11.6-14.8); White Blood Cell Count 3.9 X10^3/uL (4.5-11.0)
[2018-04-12 07:35] LABS: C-Reactive Protein Quant 7.7 mg/dL (<1.0)
[2018-04-12] MEDS: DOCUSATE 100 MG CAPSULE PO (08:11)
[2018-04-12] MEDS: HYDROCODONE/ACET 5/325 TABLET 1 TAB PO ×2 (08:17→15:04)
[2018-04-12 08:20] VITALS: BP 128/71; PULSE 74; RESP 18; TEMP 36.5; O2SAT 100
--- NOTE | 2018-04-12 11:13 | P.PN_ITS ---
Subjective Date Patient Seen: 04/12/18 Time Patient Seen: 07:13 Interval history: POD #2 S/P I and D flexor tenosynovitis ring finger left hand and drainage of tendon sheath by Dr. Linder. Pain is well controlled. Waiting results of Gram stain and cultures. Currently on IV Zosyn and vancomycin. Will start PT today. Exam Vital Signs (past 8 hours): - 04/12/18 03:35 04/12/18 08:20 Temperature 98.0 F 97.7 F Pulse Rate 67 74 Respiratory Rate 17 18 Blood Pressure 101/56 L 128/71 H Pulse Oximetry 99 100 Oxygen Delivery Method Room Air Oxygen Flow Rate 0 Narrative Exam Narrative: Patient lying in bed in no acute distress. She is alert and oriented x3. Dressing removed on left hand. According to nurse swelling has gone down significantly in the base of hand. There is just swelling at the base of the left ring finger. No signs of drainage or wound dehiscence. Objective Labs Result Diagrams: 04/12/18 06:31 04/10/18 19:50 Labs: Laboratory Results - last 24 hr 04/12/18 04/12/18 06:31 06:31 WBC 3.9 L D RBC 3.21 L Hgb 9.0 L Hct 26.3 L MCV 81.9 MCH 28.0 MCHC 34.2 RDW 18.9 H Plt Count 134 L C-Reactive Protein 7.7 H Assessment & Plan Post-op Postoperative Procedures Operation Date: 04/10/18 23:15 Actual Procedures Side Surgeon p Incision and Drainage Wound/Extremity Left Ashlee Linder MD POD #2 S/P I and D flexor tenosynovitis ring finger left hand and drainage of tendon sheath by Dr. Linder. Plan is to continue Zosyn and Vancomycin until her microbiology returns. As of this morning there is no results yet per microbiology. She will remain on IV antibiotics while in the hospital, once her cultures are finalized, and her incisions healing well, she will be discharged on appropriate oral antibiotics for 14 days. She will continue t.i.d. soaks with a dilute Betadine solution of a ratio 1-10 ( 10 cc of Betadine / per 100 cc of saline) and dry dressings will be replaced. Today she will start formal physical therapy for hand and finger range of motion, and ambulatory on the Floor. Plan to follow up with Dr. Linder in 10-14 days. Probable discharge home in next 1-2 days. Quality VTE Deep Vein Thrombosis/Pulmonary Embolism Present on Admission: No
[2018-04-12 12:40] VITALS: BP 128/70; PULSE 77; RESP 16; TEMP 36.9; O2SAT 100
--- NOTE | 2018-04-12 15:01 | OT.IP.TRT ---
Current Diagnoses Other synovitis and tenosynovitis, left hand (04/10/18) Synovitis and tenosynovitis, unspecified (04/10/18) Surgery Performed Operation Date: 04/10/18 23:15 Actual Procedures p Incision and Drainage Wound/Extremity(Left) - Ashlee Linder MD Occupational Therapy Treatment Note M3 OT- IP Subjective and Pain Start: 04/12/18 14:56 Freq: Status: Active Protocol: Document 04/12/18 14:59 [facility] (Rec: 04/12/18 15:01 [facility] [id number]) OT- Subjective Occupational Therapy Visit Type Type Administrative Note Notes Pt had surgery for left hand debridement for flexor tenosynovitis 04/10/18 at 23:49 and surgeon states to do therapy Post OP day 2, spoke to nursing and states still awaiting results of Gram strain and cultures and therefore better to see pt tomorrow for OT eval.
[2018-04-12 16:30] VITALS: BP 116/72; PULSE 70; RESP 16; TEMP 36.6; O2SAT 98
[2018-04-12 20:26] VITALS: BP 117/69; PULSE 75; RESP 16; TEMP 36.9; O2SAT 99
[2018-04-12 23:41] VITALS: BP 116/71; PULSE 72; RESP 16; TEMP 36.8; O2SAT 100
[2018-04-13] MEDS: HYDROCODONE/ACET 5/325 TABLET 1 TAB PO ×3 (00:36→13:32)
[2018-04-13] MEDS: VANCOMYCIN 1,000 MG/200 ML FROZ.PIGGY 200 MG IV ×2 (00:39→13:33)
[2018-04-13] MEDS: PIPERACILLIN-TAZO 3.375 GM/50 ML FROZ.PIGGY IV (02:02)
[2018-04-13 02:13] VITALS: BP 118/70; PULSE 70; RESP 18; TEMP 37.1; O2SAT 98
[2018-04-13 05:54] LABS: Hemoglobin 10.2 g/dL (12.0-16.0); Mean Corpuscular HGB Conc 34.2 % (30-36); Mean Corpuscular Hemoglobin 27.9 PG (26-34); Mean Corpuscular Volume 81.5 fL (80-100); Platelet Count 162 X10^3/uL (150-400); Red Blood Cell Count 3.68 X10^6/uL (4.0-5.2); White Blood Cell Count 4.3 X10^3/uL (4.5-11.0)
[2018-04-13 07:40] VITALS: BP 126/77; PULSE 74; RESP 18; TEMP 36.9; O2SAT 97
--- NOTE | 2018-04-13 09:06 | PM.PNPO.1 ---
Subjective Date Patient Seen: 04/13/18 Time Patient Seen: 09:07 Interval history: She is feeling better but still having pain more on the dorsum of the hand. Exam Vital Signs (past 8 hours): - 04/13/18 02:13 04/13/18 07:40 Temperature 98.7 F 98.4 F Pulse Rate 70 74 Respiratory Rate 18 18 Blood Pressure 118/70 126/77 H Pulse Oximetry 98 97 Oxygen Delivery Method Room Air Oxygen Flow Rate 0 Extrem Other: Left upper extremity - volar surface clean dry intact stitches, no erythema or induration. 2cm blister on dorsal ulnar ring finger that has burst . This actually looks better per nursing. Sme purulence on the dressing. Minimal purulence was able to be milked out of this area. Objective Labs Result Diagrams: 04/13/18 05:36 04/10/18 19:50 Labs: Laboratory Results - last 24 hr 04/13/18 05:36 WBC 4.3 L RBC 3.68 L Hgb 10.2 L Hct 30.0 L MCV 81.5 MCH 27.9 MCHC 34.2 RDW 19.0 H Plt Count 162 Microbiology shows MRSA Assessment & Plan Post-op Postoperative Procedures Operation Date: 04/10/18 23:15 Actual Procedures Side Surgeon p Incision and Drainage Wound/Extremity Left Ashlee Linder MD MRSA tenosynovitis of the left hand. She has a dorsal blister which has popped and we will watch this area, but this should respond to her ongoing antibiotics. Decrease her antibiotics just down to vancomycin at this point. may be able to go home in the next few days if the blister area improves further. Quality VTE Deep Vein Thrombosis/Pulmonary Embolism Present on Admission: No
--- NOTE | 2018-04-13 09:58 | OT.IP.EVAL ---
Current Diagnoses Other synovitis and tenosynovitis, left hand (04/10/18) Synovitis and tenosynovitis, unspecified (04/10/18) Surgery Performed Operation Date: 04/10/18 23:15 Actual Procedures p Incision and Drainage Wound/Extremity(Left) - Ashlee Linder MD Past Medical History (Last Reviewed 04/10/18 @ 22:55 by Ashlee Linder MD) Cognitive developmental delay (Chronic) Seizure disorder (Resolved) Occupational Therapy Inpatient Evaluation/Re-Eval M1 PT/OT-IP Prior Functional Status Start: 04/11/18 11:37 Freq: NEEDED Status: Active Protocol: Document 04/13/18 10:35 PJM (Rec: 04/13/18 10:54 PJ [id number]) Medical Review Prior Functional Status Medical History Reviewed Yes Diet/Fluid Consistency Regular Communication normal Mobility and Gait independent without AD Activities of Daily Living and IADL's independent Prior Functional Level (Other details) Pt lives with caregiver and her daughter who provide 24 hr assist to pt PRN. Caregiver, Bekah is also pt's payee. Social History Household Members family caregiver Living Arrangements House Number of Floors (Floors) One Floor Number of Stairs To Enter/Railing? No stairs to enter Home Environment Standard Height Toilet Tub/Shower Employment Status Unknown Additional Social History Comment Pt is cognitively developmentally delayed. M2 OT-IP Current Condition Start: 04/12/18 14:56 Freq: Status: Active Protocol: Document 04/13/18 10:35 PJM (Rec: 04/13/18 10:54 PJM [id number]) Occupational Therapy Current Condition Current Condition Evaluation Date 04/13/18 Treatment Diagnosis decreased L hand function due to tenosynovitis s/p I&D Diagnosis Onset Date 04/10/18 Post Operative Precautions Other Precautions ROM to L hand starting post op day 2, CONTACT precautions for MRSA in L hand. M3 OT- IP Subjective and Pain Start: 04/12/18 14:56 Freq: Status: Active Protocol: Document 04/13/18 10:35 PJM (Rec: 04/13/18 10:54 PJM [id number]) OT- Subjective Occupational Therapy Visit Type Type Initial Evaluation Visit Start Time 09:30 Visit Stop Time 09:58 Total Visit Minutes 28 Occupational Therapy Visit Comments Patient Comments It doesn't hurt at all when I don't move it. Patient/Caregiver Goals to go home OT Pain Assessment Pain When Pain Assessed After Treatment Pain Present Pain Present Pain Reported Location Left Hand Intensity 3 Scale Used Numeric (1 - 10) Description Acute Pain Behaviors Facial Grimacing Guarding Management Techniques Re-positioning Timing of Activity with Medications M4 OT- IP ADL's Start: 04/12/18 14:56 Freq: Status: Active Protocol: Document 04/13/18 10:35 PJM (Rec: 04/13/18 10:54 [facility] [id number]) OT [facility] General Evaluation Self-Feeding Ability Independent Comments OT Self-Feeding Comments Pt needs set up to open containers. OT ADL-Grooming General Evaluation Grooming Ability Standby Assistance Areas Needing Assistance Retrieving/Set-up of Grooming Items Combing/Brushing Hair Comments OT Grooming Comments SBA after set up at sink, using L hand as assist PRN OT ADL-Oral Care General Eval Oral Care Ability Standby Assistance Areas of Assistance Retrieving/Set-Up of Items Devices Oral Care Devices Toothbrush Comments Oral Care Comments SBA after set up at sink, using L hand as assist PRN OT ADL-Dressing Comments OT Dressing Comments to be assessed OT ADL-Toileting General Evaluation Toileting Ability Independent OT ADL-Bathing Bathing Type Bathing Type Sponge Bath General Evaluation Bathing Ability Minimal Assistance Comments OT Bathing Comments per DIRECTOR HEART M5 OT- IP IADL's Start: 04/12/18 14:56 Freq: Status: Active Protocol: Document 04/13/18 10:35 PJM (Rec: 04/13/18 10:54 [facility] [id number]) OT-Instrumental Activities of Daily Living Deficits IADL Deficits Identified Deficits Home Safety Awareness Awareness of Need for Assistance at Home Good Awareness Medication Management Medication Management Caregiver Administers Money Management Money Management Caregiver Provides Assistance Meal Preparation Meal Preparation Caregiver Provides Assist Fancy Sewer Fancy Sewer Caregiver Provides Assist Driving Driving Caregiver Provides Assist M6 OT- IP Functional Cognition Start: 04/12/18 14:56 Freq: Status: Active Protocol: Document 04/13/18 10:35 PJM (Rec: 04/13/18 10:54 [facility] [id number]) Cognitive Factors Limiting Selfcare Function Cognitive Ability Level of Alertness Alert Patient Orientation Name Birthday Place Situation Attention Span Ability Capable of Focused Attention Capable of Sustained Attention Ability to Follow Commands Able to Follow One Step Commands Cognitive Comments Cognitive Assessment Comments Pt appears to be at cognitive baseline. She follows directions well with good participation and effort. OT- Vision and Hearing OT- Hearing Assessment OT- Hearing Assessment WFL OT- Vision Assessment Visual Acuity WFL M7 OT- IP Mobility and Balance Start: 04/12/18 14:56 Freq: Status: Active Protocol: Document 04/13/18 10:35 PJM (Rec: 04/13/18 10:54 [facility] [id number]) OT- Bed Mobility Assessment Rolling Level of Assistance Independent Supine to Sit Supine to Sit Assist Independent Scooting Scooting to Edge of Bed Independent OT-Transfer Assessment Sit to and From Stand Sit to and from Stand Independent Transfers Transfer Ability Independent Technique Transfer Destination Chair Toilet Transfer Technique Stand Step Pivot Devices Transfer Assistive Devices None Comments Mobility Comments pt pushing IV pole with R hand . OT- Gait Assessment Gait Gait Assistance Required: Independent Distance (Feet) (feet) 25 Assistive Devices Assistive Device None OT- Balance Assessment Sitting Balance and Reactions Static Sitting Balance Ability Normal Dynamic Sitting Balance Ability Normal Standing Balance and Reactions Static Standing Balance Ability Normal Dynamic Standing Balance Ability Normal Comments Other Balance Tests/Deviations/Treatment appears WNL : M8 OT- IP Objective Assessments Start: 04/12/18 14:56 Freq: Status: Active Protocol: Document 04/13/18 10:35 PJM (Rec: 04/13/18 10:54 [facility] [id number]) OT Gross Range of Motion Upper Extremity Range of Motion Assessment Left Impaired ROM Impairments L hand heavily bandaged in bulky kerlix dressing limiting composite finger flexion in all fingers to about 50%. Pt c /o's pain with gentle passive composite flexion to half range in L ring finger. Pt needs assist to facilitate MP/ IP extension. L wrist AROM appears WFL. Will provide further assessment of L ring finger ROM when able to see pt during dressing change. OT Strength Upper Extremity Strength Assessment Left Impaired Hand Service Counselor Strength Hand Dominance Right Comments Strength Comments L hand functional strength limited by pain in L ring finger and bulky dressing. Not formally assessed. OT- Coordination Assessment Comments Coordination Comments L hand functional use limited by bulky dressing. Pt able to use L thumb, index and middle fingers for grasp of grooming items. OT-Muscle Tone Assessment Muscle Tone WNL Yes OT Sensation Assessment Comments Summary Comments pt detects light touch in all fingertips of L hand and denies sensory deficits Edema Edema Present Edema Comments min edema in L fingers, pt reports it is significantly decreased compared to before surgery M9 OT- IP Assessment and Plan Start: 04/12/18 14:56 Freq: Status: Active Protocol: Document 04/13/18 10:35 PJM (Rec: 04/13/18 10:54 PJM [id number]) OT Summary Assessment and Plan Potential Rehabilitation Potential Good Analytic Complexity at Evaluation Low Summary OT Impairments Pain Range of Motion Strength Coordination Assessment Summary Low complexity OT assessment completed with emphasis on L hand ROM and self care skills. Primary performance deficit is in decreased L (non dominant) hand function and pt will need assist with dressing change, L hand ROM exercises and shower at home. Pt has 24 hr caregiver assist and anticipate pt will be able to d/c home when medically stable. Pt is independent with functional mobility and has been cleared by P.T. Goals Bathing Goal Minimal Assistance OT-Other Goals Pt will complete L hand AAROM exercises with min verbal cues using written directions. Days to Meet Goals 2 Frequency of Treatment Frequency Of Treatment Once a Day Treatment Plan OT Treatment Plan ADL Training Therapeutic Exercises Discharge Recommendations OT Discharge Recommendations Home with Assistance
[2018-04-13 12:30] VITALS: BP 116/65; PULSE 81; RESP 16; TEMP 37.1; O2SAT 98
--- NOTE | 2018-04-13 12:41 | CM.DPC ---
DCP Cont: Ortho hospitalist stated that patient could potentially go home tomorrow,and may need to continue on IV antibiotics. Patient is currently on IV Vancomyci, MRSA precautions. Stated, will be dependent upon how hand is, and if it improves. Went ahead and left message with Tesha Man RN for [facility], in case patient is to be discharged home tomorrow. P: DCP continue to plan and assess, and note if she is to be discharged tomorrow. If so, may need to re-contact [facility] on when they could come out to the home. Will also be dependent on IV med, how often it will need to be given, and if any changes. Alisha Mcmillan RN/Human Resources Specialist
--- NOTE | 2018-04-13 14:09 | CM.DPC ---
DCP Cont: Spoke to Tanya at [facility]. Stated that they could accomidate patient with her insurance, and would be able to do IV ABO in home. Asked for information to be faxed, clinicals, face sheet,med sheet. Went ahead and faxed to her. Let her know that their services may not be needed, for she could be discharged on p.o. meds, but faxed information just in case. Spoke to nurse Angie. Stated that there is a good chance she may be discharged on p.o. antibiotics, for there are some that are sensitive to current bacteria. Dr. Linder will be following up with patient tomorrow. P: DCP to continue to plan and assess. If patient is to go home on Iv antibiotics, follow up with [facility], for they have information on board. Alisha Mcmillan RN/Distillation Operator Helper
[2018-04-13 16:15] VITALS: BP 140/83; PULSE 70; RESP 16; TEMP 36.4; O2SAT 98
--- NOTE | 2018-04-13 18:32 | PC.NURSE ---
DENIES PAIN WITH SOAK AND DRSG CHANGE,SMALL AMOUNT OF DRAINAGE ON 4X4s.
[2018-04-13 20:28] VITALS: BP 133/76; PULSE 74; RESP 17; TEMP 36.6; O2SAT 99
[2018-04-13 23:58] VITALS: BP 139/80; PULSE 75; RESP 18; TEMP 37.1; O2SAT 97
[2018-04-14] MEDS: VANCOMYCIN 1,000 MG/200 ML FROZ.PIGGY 200 MG IV (00:58)
[2018-04-14 03:19] VITALS: BP 126/73; PULSE 74; RESP 18; TEMP 36.8; O2SAT 99
[2018-04-14 07:10] VITALS: BP 126/76; PULSE 66; RESP 16; TEMP 36.6; O2SAT 97
--- NOTE | 2018-04-14 07:33 | PM.DS.1 ---
History of Present Illness Date Patient Seen: 04/14/18 Time Patient Seen: 07:17 Chief complaint: SWOLLEN LEFT HAND Narrative: Patient seen bedside s/p I&D of the left hand POD #4. Patient doing better, still draining but not as much as it has been. Been on IV vancomycin but cultures grew back MRSA sensitive to bactrim, clindamycin, and doxycycline. Patient appears ready to be transitioned to oral abx for discharge. Discharge Providers Date of admission: 04/10/18 21:21 Consults: 04/11/18 00:57 Consult to Physical Therapy Evaluate & Treat Comment: hand/ fingersrange of motion start postop day 2 Physician Instructions: Evaluate and Treat Consult to Respiratory Therapy Evaluate & Treat Comment: Physician Instructions: Evaluate and treat 04/11/18 10:37 Consult to Occupational Therapy Evaluate & Treat Comment: Physician Instructions: Evaluate and treat 04/12/18 07:49 Consult to Physical Therapy Evaluate & Treat Comment: hand and finger ROM Physician Instructions: Evaluate and Treat Discharge provider: Shantel Brenner PA-C Summary Discharge Diagnosis: Pyogenic tenosynovitis of the left hand Hospital Course: Patient was admitted for pyogenic tenosynovitis of the left hand on 04/10/18. Patient was taken to the OR by Dr. Linder for I&D and washout on the . Cultures came back with MRSA sensitive to multiple oral abx. Patient was stable and ready for d/c home on 04/14/18. Status at Discharge Cognitive/behavioral status at discharge: Alert and oriented at baseline Functional status at discharge: independent ambulation Overall status at discharge: patient is progressing back to baseline Time Spent with Patient Less than 30 minutes Exam Vital Signs (past 8 hours): - 04/13/18 23:58 04/14/18 03:19 Temperature 98.8 F 98.2 F Pulse Rate 75 74 Respiratory Rate 18 18 Blood Pressure 139/80 H 126/73 H Pulse Oximetry 97 99 Oxygen Delivery Method Room Air Oxygen Flow Rate 0 Narrative Exam Narrative: Well-developed well-nourished in no acute distress. Alert and oriented. Left hand incision is clean dry and intact with minimal discharge. Redness is improving. She has full range of motion of the fingers and hand. She is NVI in this extremity. Objective Labs Result Diagrams: 04/13/18 05:36 04/10/18 19:50 Discharge Plan Discharge Plan Patient Disposition: Home Provider Discharge Instructions Diet: Diet as Tolerated Activity: Keep dressing clean and dry. Skin/Wound/Dressing Care Report to your healthcare provider any signs of infection, such as:: chills, fever, night sweats, increased pain and unusual drainage Dressing: Keep incision clean, dry, and intact. Wet to dry dressing changes twice a day. Other wound treatment: Call office for increased redness, drainage, pain. Discharge Data Attending Provider: Ashlee Linder Admit Date/Time: 04/10/18 21:21 Quality VTE Deep Vein Thrombosis/Pulmonary Embolism Present on Admission: No
--- NOTE | 2018-04-14 12:10 | PC.NURSE ---
discharge- after speaking with PA this am, order to place wet to dry dressings on wound. did final betadine soak and then replaced with wet to dry dressing. changed one more time prior to d/c with pt's cousing (caregiver) to show her how to do dressing change. caregiver asked appropriate questions and stated she felt comfortable performing dressing changes at home. d/c instructions provided to pt. notified to call MD to schedule f/u apt and for any additional questions or concerns. Rx sent home with pt. Pt states she took all belongings with her. PIV removed prior to d/c. pt left with RN escort and her family to private vehicle for d/c.
--- NOTE | 2018-04-14 13:30 | CM.DPC ---
DCP: continued: case again received and d/c to home order noted. Pt going on oral antibiotics. [facility] was updated.
== END 2018-04-14 12:00 | disposition home or self-care (01) | DRG 514 ==
LOC: ED 20:48 → AC 21:22
PROVIDERS: Physician Assistant Surgical; Admitting Provider Orthopaedic Surgery Foot and Ankle Surgery; Emergency Provider Internal Medicine; Visit Provider Orthopaedic Surgery Foot and Ankle Surgery
PROC: 0L980ZZ Drainage of Left Hand Tendon, Open Approach (ICD-10-PCS; principal; 2018-04-10 23:15)
DX: M65.842 Other synovitis and tenosynovitis, left hand (principal); R62.50 Unspecified lack of expected normal physiological development in childhood; B95.62 Methicillin resistant Staphylococcus aureus infection as the cause of diseases classified elsewhere
CPT/HCPCS: 36415; 36591; 73130; 80048; 83605; 84145; 85025; 85027; 85651; 86140; 87040; 87070; 87075; 87077; 87147; 87186; 87205; 94760; 96365; 96375; 97110; 97161; 97165; 99283; 99284; J0295; J1100; J1885; J2250; J2405; J2543; J2704; J3010; J3370